=== PATIENT | female | born 1985 | race African-American/Black ===

== ENCOUNTER 2021-01-24 10:11 | Outpatient (REF) | payer MEDICARE, MEDICAID, SELFPAY ==
--- NOTE | ~2021-01-24 | MR_ITS ---
EXAMINATION: MRI BRAIN WITHOUT CONTRAST CLINICAL INFORMATION: 35-year-old with complaints of bilateral leg weakness. Incontinence. Evaluate for white matter disease. COMPARISON: None TECHNIQUE: Multisequence multiplanar MR imaging of the brain was done without IV contrast. FINDINGS: Brain Volume: Within normal limits. Structural: No malformations. Brain and Meninges: DWI imaging demonstrates no restricted diffusion. Specifically, there is no evidence for subacute or acute ischemic event. Note is made of focal T2 hyperintensity along the inferior aspect of the splenium of the corpus callosum with a curvilinear focus of low-T1 signal as well as T2-hyperintensity along the inferior surface of the posterior body and and ventral surface of the splenium. Remainder of the brain is normal in morphology and signal intensity. There is no evidence for hemorrhage, hemosiderin staining or abnormal mineral deposition. No extra-axial fluid collections, space-occupying process or mass effect are identified. Ventricles and Subarachnoid Spaces: The ventricular system and subarachnoid spaces are within normal limits without hydrocephalus. Orbital Structures: The visualized orbital structures are grossly unremarkable within the limitations of the study. Vascular: Signal voids are noted in the visualized major intracranial vessels. Sinuses and Osseous Structures: Mild mucosal thickening noted in the ethmoid complex. There is a 1 cm nonspecific nodule in the superficial lobe of the left parotid gland in addition to a few subcentimeter nonspecific nodular structures in both parotid glands which are probably intraparotid lymph nodes. The largest nodular structure on the left warrants follow up examination to confirm stability. MR/MR head/brain wo con IMPRESSION: 1. The finding in the splenium of the corpus callosum is nonspecific and warrants additional evaluation with contrast material. Differential diagnostic considerations would include reversible splenial lesion, demyelination, infectious and inflammatory disease. Ischemia and reversible splenial lesion are less likely as DWI is normal. Recommend short-term interval follow up with contrast to further assess. 2. Probable intraparotid lymph nodes in the superficial lobes of both parotid glands with one of these on the left being slightly prominent in size and warranting follow up to confirm stability in 6 months to exclude a small parotid neoplasm. The [facility] staff will call to confirm receipt of this report with acknowledgement of the findings and any recommendations.
== END 2021-01-24 10:12 | disposition home or self-care (01) ==
LOC: HO.MRI 10:11
PROVIDERS: Visit Provider Psychiatry & Neurology Neurology
DX: G37.3 Acute transverse myelitis in demyelinating disease of central nervous system (principal); R32 Unspecified urinary incontinence
CPT/HCPCS: 70551

== ENCOUNTER 2021-02-01 13:30 | Outpatient (REF) | payer MEDICARE, MEDICAID, SELFPAY ==
--- NOTE | ~2021-02-01 | MR_ITS ---
EXAMINATION: MRI BRAIN WITH IV CONTRAST CLINICAL INFORMATION: Call back postcontrast imaging. Acute transverse myelitis. COMPARISON: Brain MRI 01/24/2021. TECHNIQUE: Multiplanar multisequence MR imaging of the brain is obtained following the administration of 9 mL of Gadavist intravenous contrast without complication. FINDINGS: Previously seen increased signal on T2-weighted imaging within the lower splenium of the corpus callosum and possibly the posterior hippocampi bilaterally is slightly decreased with differential considerations as discussed previously. There is no pathologic enhancement in these areas nor elsewhere intracranially. There is new lack of FLAIR CSF suppression conforming to vasculature within left parietotemporal sulci and the dorsal right sylvian fissure. A CTA/CTV of the head would be helpful in excluding slow flow within vessels and/or occluded vessels to explain this finding. On the high-resolution postcontrast series, no convincing arterial occlusions are seen though assessment on this nonvascular study is limited. MR/MR head/brain w con IMPRESSION: - Previously seen increased signal on T2-weighted imaging within the lower splenium of the corpus callosum and possibly the posterior hippocampi bilaterally is slightly decreased with differential considerations as discussed previously. There is no pathologic enhancement in these areas nor elsewhere intracranially. - There is new lack of FLAIR CSF suppression conforming to vasculature within left parietotemporal sulci and the dorsal right sylvian fissure. A CTA/CTV of the head would be helpful in excluding slow flow within vessels and/or occluded vessels to explain this finding. There is no leptomeningeal enhancement on the postcontrast series to suggest meningitis. On the high-resolution postcontrast series, no convincing arterial occlusions are seen though assessment on this nonvascular study is limited.
== END 2021-02-01 13:31 | disposition home or self-care (01) ==
LOC: HO.MRI 13:30
PROVIDERS: Visit Provider Psychiatry & Neurology Neurology
DX: G37.3 Acute transverse myelitis in demyelinating disease of central nervous system (principal)
CPT/HCPCS: 70552; A9585